=== PATIENT | male | born 2005 | race Two or more races ===

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

== ENCOUNTER → 2024-06-15 | Outpatient (CLI) | payer MEDICAID, OTHER ==
[2024-06-15 14:36] LABS: BASO % 0.5 % (0.0-1.0); EOS % 0.5 % (0.0-3.0); HEMATOCRIT 49.4 % (42.0-52.0); HEMOGLOBIN 16.8 g/dl (13.5-17.5); LYMPH # 3.7 10^3/uL (1.5-5.0); LYMPH % 47.6 % (24.0-44.0); MEAN CORPUSCULAR HEMOGLOBIN 29.7 pg (27.0-33.0); MEAN CORPUSCULAR VOLUME 87.4 fl (80.0-96.0); MONO # 0.5 10^3/uL (0.0-0.8); MONO % 6.3 % (2.0-8.0); NEUTROPHILS # 3.5 10^3/uL (1.5-8.5); NEUTROPHILS % 44.8 % (36.0-66.0); PLATELET COUNT, AUTOMATED 255 10^3/uL (150-450); RED BLOOD COUNT 5.65 10^6/uL (4.30-6.10); WHITE BLOOD COUNT 7.8 10^3/uL (4.0-10.0)
[2024-06-15 14:58] LABS: ALBUMIN 4.4 G/DL (3.2-5.2); ALKALINE PHOSPHATASE 74 U/L (40-129); ALT/SGPT 26 U/L (7.0-40); AST/SGOT 22 U/L (<34); BILIRUBIN,TOTAL 0.6 MG/DL (0.3-1.2); BLOOD UREA NITROGEN 10 MG/DL (9-23); CALCIUM LEVEL 10.2 MG/DL (8.5-10.1); CARBON DIOXIDE LEVEL 30 MMOL/L (20-31); CHLORIDE LEVEL 103 MMOL/L (98-107); CPK CREATINE PHOSPHOKINASE 139 U/L (46-171); GLUCOSE, FASTING 100 MG/DL (60-100); POTASSIUM SERUM 3.8 MMOL/L (3.5-5.1); SODIUM LEVEL 140 MMOL/L (136-145); TOTAL PROTEIN 7.5 G/DL (5.7-8.2)
[2024-06-15 15:01] LABS: THYROID STIMULATING HORMONE 2.445 uIU/ML (0.48-4.17); THYROXINE (T4) 7.2 UG/DL (5.5-11.1)
[2024-06-15 15:02] LABS: FREE THYROXINE INDEX 2.4 % (1.4-3.8); T UPTAKE 33.1 % (22.5-37.0); VITAMIN B12 LEVEL 530 PG/ML (211-911)
[2024-06-15 15:28] LABS: FOLATE > 24.00 NG/ML (>5.4)
[2024-06-16 15:52] LABS: ALDOLASE 3.8 U/L (< OR = 8.1)
[2024-06-20 01:37] LABS: VITAMIN E(ALPHA TOCOPHEROL) 11.1 mg/L (5.7-19.9)
[2024-06-20 18:28] LABS: VITAMIN B6,PYRIDOXAL PHOSPHATE 28.6 ng/mL (2.1-21.7)
== END ==
LOC: M PLALAB 09:41
PROVIDERS: ATTEND Psychiatry & Neurology Neurology
DX: E07.9 Disorder of thyroid, unspecified (principal); D51.9 Vitamin B12 deficiency anemia, unspecified; M79.10 Myalgia, unspecified site